=== PATIENT | male | born 1970 | race Two or more races ===

== ENCOUNTER 2022-09-23 21:28 | Emergency (ER) | payer MEDICAID, SELFPAY ==
[2022-09-23 21:37] VITALS: BP 202/114; PULSE 87; O2SAT 98
[2022-09-23 21:42] VITALS: BP 156/96; PULSE 68; RESP 16; TEMP 36.8; O2SAT 98; BMI 30.3
--- NOTE | 2022-09-23 21:58 | ED.OVERDOSE ---
HPI - Overdose General Chief Complaint: Overdose Stated Complaint: unconscious Time Seen by Provider: 09/23/22 21:56 Source: patient and EMS Mode of arrival: EMS History of Present Illness HPI Narrative: Patient with no history of substance abuse was [place] the [place] and 2 drinks came out was going to the his car and suddenly passed out EMS came noticed had a few pinpoint pupil was given 12 mg of Narcan with patient does not remember what happened was in the restroom with drink outside and when he came finished a drink patient denied use of any opiates in the past at this time patient is back to normal saturating 100% at room air ambulatory with steady gait Related Data Allergies Allergy/AdvReac Type Severity Reaction Status Date / Time No Known Allergies Allergy Verified 09/23/22 21:41 Review of Systems Review of Systems: Yes all other systems are reviewed and are negative FOR[facility]LY [facility], [facility] Social History Social History Alcohol intake: current Smoked in Last 30 Days: No Use of substances other than those prescribed or required for medical reasons: No Advance Directives: No Advance Directives Information Provided: Yes Physical Exam Vital Signs: Vital Signs: Last Vital Signs Temp 98.2 F 09/23/22 21:42 Pulse 68 09/23/22 21:42 Resp 16 09/23/22 21:42 BP 156/96 H 09/23/22 21:42 Pulse Ox 98 09/23/22 21:42 O2 Del Method Room Air 09/23/22 21:42 BMI result Body Mass Index 30.3 Appearance: Alert. Oriented X3. No acute distress. Eyes: PERRLA, No Nystagmus ENT: Pharynx normal. Oral Mucosa moist Neck: Normal inspection. Neck supple. CVS: Normal heart rate and rhythm. Pulses normal. Respiratory: No respiratory distress. Equal air entry bilateral, no wheezing/rales/rhonchi Abdomen: Soft and nontender. Bowel sounds are present, no mass palpable, no CVA tenderness Skin: Skin warm and dry. Normal skin color. Normal skin turgor. Extremities: No lower extremity edema. No calf tenderness Neuro: Oriented X 3. No motor deficit. No sensory deficit.No cerebellar signs , cranial nerves II-XII intact Medical Decision Making Medical Decision Making MDM Narrative: Patient alert and oriented x3 saturating 98-100% room air urine drug screening showed positive for opiates and fentanyl discharge patient home advised not to use opiates Lab Data MDM Lab Attestation statement: I reviewed the patient's lab results. Labs: Lab Results 09/23/22 Range/Units 22:31 Urine Opiates Screen POSITIVE H (Not Detect) Urine Fentanyl Screen POSITIVE H (Not Detect) Ur Barbiturates Screen Not Detected (Not Detect) Ur Phencyclidine Scrn Not Detected (Not Detect) Ur Amphetamines Screen Not Detected (Not Detect) U Benzodiazepines Scrn Not Detected (Not Detect) Urine Cocaine Screen Not Detected (Not Detect) U Marijuana (THC) Screen POSITIVE H (Not Detect) Discharge Plan Discharge Clinical Impression: Opiate overdose Patient Disposition: Home, Self-Care Instructions: Narcotic Use Disorder (ED) Additional Instructions: Your urine was positive for fentanyl and heroin Be careful when in parties Interventions: ED Discharge Assessment Last Done: 09/23/22 23:28 Discharge Date/Time: 09/23/22 23:28
[2022-09-23 22:51] LABS: Amphetamine Screen Urine Not Detected (Not Detect); Barbiturates, Urine Not Detected (Not Detect); Benzodiazepines Screen Urine Not Detected (Not Detect); Cannabinoid Screen Urine POSITIVE (Not Detect); Cocaine Screen Urine Not Detected (Not Detect); Fentanyl, urine POSITIVE (Not Detect); Opiate Screen Urine POSITIVE (Not Detect); Phencyclidine Screen Urine Not Detected (Not Detect)
== END 2022-09-23 23:28 | disposition home or self-care (01) ==
PROVIDERS: Emergency Provider Internal Medicine
DX: T40.1X1A Poisoning by heroin, accidental (unintentional), initial encounter (principal); R40.20 Unspecified coma; F19.10 Other psychoactive substance abuse, uncomplicated; Y92.414 Local residential or business street as the place of occurrence of the external cause
CPT/HCPCS: 80307; 99284